=== PATIENT | male | born 1965 | race Caucasian/White ===

== ENCOUNTER 2016-06-13 09:40 | Emergency (ER) | payer OTHER ==
--- NOTE | 2016-06-13 10:14 | ED.ADGEN ---
Adult General HPI HPI Patient is a 50-year-old man, with history of allergies, recurrent sinusitis and pneumonia, who presents the emergency department with a complaint of shortness of breath and cough for the past several days. Patient states he was treated for an episode of sinusitis recently, completed a course of antibiotics about 10 days ago. He states that his sinus symptoms had improved, but several days been experiencing increasing coughing productive of yellow sputum, and shortness of breath. He denies any fevers or chills, but states he is feeling fatigued. 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 He denies any exposures or ingestions, any swelling of the extremities , any history of DVT or PE. Patient's oxygen saturation on arrival is noted to be 88-94% on room air, heart rate is in the 70s, blood pressure is 130s over 70s , respiratory rate is 18 and unlabored at rest. He denies any syncope, states he occasionally will have a shooting chest pain in the left side of his chest, denies any nausea or vomiting, states that he has received x-rays and CTs of his chest for the symptoms previously, last was about a year ago. He states he has not previously required admission for his recurrent pneumonias. States that aside from receiving allergy injections, he does not take any medications on a regular basis or any other medical history. No drugs, alcohol or cigarettes. Review of Systems Review of Systems Constitutional: Denies fever or chills [] fatigue. Eyes: Denies change in visual acuity, redness, or eye pain [] HENT: Nasal congestion, no sore throat. Respiratory: Cough productive of yellow sputum, shortness of breath. Cardiovascular: No additional information not addressed in HPI [] GI: Denies abdominal pain, nausea, vomiting, bloody stools or diarrhea [] : Denies dysuria or hematuria [] Musculoskeletal: Denies back pain or joint pain [] Integument: Denies rash or skin lesions [] Neurologic: Denies headache, focal weakness or sensory changes [] Endocrine: Denies polyuria or polydipsia [] Current Medications Current Medications Current Medications Medications (Trade) Dose Ordered Sig/Scar Start Time Stop Time Status Last Admin Dose Admin Albuterol/ Ipratropium (Duoneb) 3 ml 1X ONCE 06/13/16 10:30 06/13/16 10:31 DC 06/13/16 10:21 3 ML Levofloxacin (Levaquin) 750 mg 1X ONCE 06/13/16 11:50 06/13/16 11:51 DC 06/13/16 11:40 750 MG Prednisone (Prednisone) 40 mg 1X ONCE 06/13/16 10:30 06/13/16 10:31 DC 06/13/16 10:18 40 MG Allergies Allergies Allergies Coded Allergies Type Severity Reaction Last Updated Verified No Known Drug Allergies 06/13/16 No Physical Exam Physical Exam Constitutional: Well developed, well nourished, no acute distress, non-toxic appearance. [] HENT: Normocephalic, atraumatic, bilateral external ears normal, oropharynx moist, no oral exudates, patient with mild turbinate swelling, and clear rhinorrhea noted, nasal congestion identified with speech. [] Eyes: PERRLA, EOMI, conjunctiva normal, no discharge. [] Neck: Normal range of motion, no tenderness, supple, no stridor. [] Cardiovascular:Heart rate regular rhythm, no murmur, S1, S2, no rubs or gallops. [] Lungs & Thorax: Patient with diminished breath sounds, very mild expiratory wheeze noted in the left upper lobe, no rhonchi or rales identified. No chest or crepitus or tenderness. [] Abdomen: Bowel sounds normal, soft, no tenderness, no rebound, rigidity, no guarding, no masses, no pulsatile masses. [] Skin: Warm, dry, no erythema, no rash. [] Back: No tenderness, no CVA tenderness. [] Extremities: No tenderness, no cyanosis, no clubbing, ROM intact, no edema. Negative Homans sign. [] Neurologic: Alert and oriented X 3, normal motor function, normal sensory function, no focal deficits noted. [] Psychologic: Affect normal, judgement normal, mood normal. [] Current Patient Data Vital Signs Vital Signs Date Time Temp Pulse Resp B/P Pulse Ox O2 Delivery O2 Flow Rate FiO2 06/13/16 11:10 93 Room Air 06/13/16 09:41 97.6 71 20 Lab Results Laboratory Tests Test 06/13/16 10:25 White Blood Count 10.4x10^3/uL (4.0-11.0) Red Blood Count 5.00x10^6/uL (4.30-5.70) Hemoglobin 15.4g/dL (13.0-17.5) Hematocrit 45.7% (39.0-53.0) Mean Corpuscular Volume 92fL (79-100) Mean Corpuscular Hemoglobin 31pg (25-35) Mean Corpuscular Hemoglobin Concent 34g/dL (31-37) Red Cell Distribution Width 13.1% (11.5-14.5) Platelet Count 217x10^3/uL (140-400) Neutrophils (%) (Auto) 50% (31-73) Lymphocytes (%) (Auto) 15% (24-48) L Monocytes (%) (Auto) 7% (0-9) Eosinophils (%) (Auto) 25% (0-3) H Basophils (%) (Auto) 2% (0-3) Neutrophils # (Auto) 5.2x10^3uL (1.8-7.7) Lymphocytes # (Auto) 1.6x10^3/uL (1.0-4.8) Monocytes # (Auto) 0.7x10^3/uL (0.0-1.1) Eosinophils # (Auto) 2.6x10^3/uL (0.0-0.7) H Basophils # (Auto) 0.3x10^3/uL (0.0-0.2) H Sodium Level 140mmol/L (136-145) Potassium Level 4.3mmol/L (3.5-5.1) Chloride Level 101mmol/L (98-107) Carbon Dioxide Level 28mmol/L (21-32) Anion Gap 11 (6-14) Blood Urea Nitrogen 18mg/dL (8-26) Creatinine 1.3mg/dL (0.7-1.3) Estimated GFR (Cockcroft-Gault) 58.9 BUN/Creatinine Ratio 14 (6-20) Glucose Level 102mg/dL (70-99) H Lactic Acid Level 0.9mmol/L (0.4-2.0) Calcium Level 9.2mg/dL (8.5-10.1) Total Bilirubin 0.5mg/dL (0.2-1.0) Aspartate Amino Transferase (AST) 27U/L (15-37) Alanine Aminotransferase (ALT) 40U/L (16-63) Alkaline Phosphatase 105U/L (46-116) Troponin I Quantitative < 0.017ng/mL (0-0.055) KQ-[id number]-K-Type Natriuretic Peptide 24pg/mL (0-124) Total Protein 8.5g/dL (6.4-8.2) H Albumin 3.8g/dL (3.4-5.0) Albumin/Globulin Ratio 0.8 (1.0-1.7) L EKG EKG EC: Sinus rhythm, heart rate 58 bpm, upright axis, QTC of 378, NE of 28, QRS of 80, no ST elevations or depressions, no evidence of acute ST abnormalities. As interpreted by me. Radiology/Procedures Radiology/Procedures [] [address] [address] IMAGING REPORT Signed PATIENT: SYBIL TELLEZ ACCOUNT: [id number] : 1965 LOCATION: ER AGE: 50 SEX: M EXAM STATUS: REG ER ORD. PHYSICIAN: EPI COSTA DO REASON: Cough/SOB/Hypoxia PROCEDURE: CHEST PA & LATERAL 2 view CXR: Clinical indications: Cough and shortness of breath for days. Comparison: None available. Findings: There is a consolidative round infiltrate within the anterior segment of the right upper lobe. No pleural effusion or pneumothorax or pulmonary edema is seen. The heart size, pulmonary vasculature, mediastinum and both gonzález are unremarkable. The osseous structures appear intact. Impression: Right upper lobe consolidative lung infiltrate consistent with pneumonia. However, follow-up chest x-ray in 6-8 weeks after completion of antibiotic therapy is recommended to exclude a neoplastic process.. DICTATED AND SIGNED BY: RONDA YOU MD DATE: 06/13/16 1045 CC: EPI COSTA DO; PCP,NO ~ Course & Med Decision Making Course & Med Decision Making Pertinent Labs and Imaging studies reviewed. (See chart for details) After receiving a neb treatment and steroids in the emergency part, patient was observed. Oxygen saturations arrest are now 97-98%, respiratory rate remains unlabored. X-ray imaging reveals evidence of a right sided pneumonia, laboratory studies are unremarkable including a lactic of 0.9. I did discuss these findings with patient, he is now approximate hour out from receiving his nebulizer treatment and remains comfortable with a stable oxygen saturation. We discussed admission to the hospital for IV antibiotics and monitoring, patient states that as he is feeling well he'll prefer to be discharged home, and oral antibiotic course of possible, and will return to the emergency department if any concerning symptoms to develop. Patient received his first dose of Levaquin in the emergency department, as he has recent antibiotic use. He did tolerate medication without issue. Patient received an ambulatory trial in the emergency department, heart rate in the 60s to 70s, oxygen saturation 97-98% without difficulty during this trial. Patient given clear and detailed return, medication, and follow-up instructions, including the need to repeat x-rays in 6 -8 weeks to ensure that this process is cleared. Patient voiced understanding and agreement with plan as stated, discharged home in stable condition with plan as above. Final Impression Final Impression [] Problems: (1) Pneumonia Qualifiers: Qualified Code: J18.1 - Lobar pneumonia, unspecified organism Dragon Disclaimer Dragon Disclaimer This electronic medical record was generated, in whole or in part, using a voice recognition dictation system. Departure Disposition: 01 HOME, SELF-CARE Condition: IMPROVED EPI COSTA DO Jun 13, 2016 10:14
[2016-06-13] MEDS ORDERED: IPRATRPIUM/ALBUTEROL 0.5/2.5MG 3 ML NEBU. NEB ONE (10:30)
[2016-06-13] MEDS ORDERED: PREDNISONE 20 MG TABLET PO ONE (10:30)
[2016-06-13 10:49] LABS: BASO # 0.3 x10^3/uL (0.0-0.2); BASO % 2 % (0-3); EOS # 2.6 x10^3/uL (0.0-0.7); EOS % 25 % (0-3); HEMATOCRIT 45.7 % (39.0-53.0); HEMOGLOBIN 15.4 g/dL (13.0-17.5); LYMPH # 1.6 x10^3/uL (1.0-4.8); LYMPH % 15 % (24-48); MEAN CORPUSCULAR HEMOGLOBIN 31 pg (25-35); MEAN CORPUSCULAR HGB CONC 34 g/dL (31-37); MEAN CORPUSCULAR VOLUME 92 fL (79-100); MONO # 0.7 x10^3/uL (0.0-1.1); MONO % 7 % (0-9); NEUT # 5.2 x10^3uL (1.8-7.7); NEUT % 50 % (31-73); PLATELET COUNT 217 x10^3/uL (140-400); RED CELL DISTRIBUTION WIDTH 13.1 % (11.5-14.5); WHITE BLOOD COUNT 10.4 x10^3/uL (4.0-11.0)
--- NOTE | 2016-06-13 10:49 | RAD ---
2 view CXR: Clinical indications: Cough and shortness of breath for days. Comparison: None available. Findings: There is a consolidative round infiltrate within the anterior segment of the right upper lobe. No pleural effusion or pneumothorax or pulmonary edema is seen. The heart size, pulmonary vasculature, mediastinum and both gonzález are unremarkable. The osseous structures appear intact. Impression: Right upper lobe consolidative lung infiltrate consistent with pneumonia. However, follow-up chest x-ray in 6-8 weeks after completion of antibiotic therapy is recommended to exclude a neoplastic process..
[2016-06-13 11:09] LABS: ALBUMIN 3.8 g/dL (3.4-5.0); ALBUMIN/GLOBULIN RATIO 0.8 (1.0-1.7); CALCIUM 9.2 mg/dL (8.5-10.1); CREATININE 1.3 mg/dL (0.7-1.3); GFR 58.9; POTASSIUM 4.3 mmol/L (3.5-5.1); TOTAL BILIRUBIN 0.5 mg/dL (0.2-1.0); TOTAL PROTEIN 8.5 g/dL (6.4-8.2)
[2016-06-13] MEDS ORDERED: LEVOFLOXACIN 500 MG TABLET PO ONE (11:50)
[2016-06-13 11:58] VITALS: BP 124/72
--- NOTE | 2016-06-13 15:05 | EKG ---
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
--- NOTE | 2016-06-15 12:13 | EKG ---
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
== END 2016-06-13 11:58 | disposition home or self-care (01) ==
LOC: ER 09:40
DX: J18.9 Pneumonia, unspecified organism (principal)
CPT/HCPCS: 36415; 71020; 80053; 83605; 83880; 84484; 85027; 93005; 94640; 99285; J7512; J7620